=== PATIENT | female | born 1955 | race Caucasian/White ===

== ENCOUNTER 2017-06-09 11:35 | Day surgery (SDC) | END 2017-06-09 14:52 | disposition home or self-care (01) ==

== ENCOUNTER 2017-08-18 08:36 | Day surgery (SDC) | END 2017-08-18 12:40 | disposition home or self-care (01) ==

== ENCOUNTER 2018-06-01 15:43 | Emergency (ER) | payer OTHER ==
[~2018-06-01] VITALS: Ht 165.1 cm; Wt 55.0 kg
[2018-06-01 15:50] VITALS: BP 147/85; PULSE 102; RESP 20; Ht 165.1 cm; Wt 55.0 kg
[2018-06-01] MEDS ORDERED: NITR100C6 PO (21:45)
--- NOTE | 2018-06-02 02:45 | ERD ---
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 She states that she has been noticing blood when she pees. No prior similar symptoms. She denies any pain. She denies fevers or chills. She denies burning sensation. She denies nausea or vomiting. She has history of left breast lump and has being followed by specialist. She states that she had a PET scan done 2 weeks ago which was negative. She denies chest pain or shortness of breath. Denies abdominal pain, nausea, vomiting. ROS All systems reviewed and are negative except as per history of present illness. Medications Home Meds Active Scripts Nitrofurantoin Monohyd Macrocr (Macrobid) 100 Mg Capsr, 100 MG PO BID for UTI for 5 Days, #10 CAP Prov:DAKOTA KAISER DO 06/01/18 Allergies Allergies: Coded Allergies: Penicillins (Verified Allergy, Intermediate, 08/18/17) rash latex (Verified Allergy, Intermediate, 08/18/17) rashes PMhx/Soc Medical and Surgical Hx: pt denies Medical Hx, pt denies Surgical Hx History of Surgery: Yes (LEFT KNEE SX, LEFT BREAST LUMP REMOVAL) Anesthesia Reaction: No Hx Neurological Disorder: No Hx Respiratory Disorders: No Hx Cardiac Disorders: No Hx Psychiatric Problems: No Hx Miscellaneous Medical Probl: No Hx Alcohol Use: No Hx Substance Use: No Hx Tobacco Use: Yes Smoking Status: Current some day smoker Physical Exam Vitals Vital Signs Date Temp Pulse Resp B/P (MAP) Pulse Ox O2 O2 Flow FiO2 Time Delivery Rate 06/01/18 97.2 102 20 147/85 99 15:50 (105) Physical Exam Const: No acute distress Head: Atraumatic Eyes: Normal Conjunctiva ENT: Normal External Ears, Nose and Mouth. Neck: Full range of motion. No meningismus. Resp: Clear to auscultation bilaterally Cardio: Regular rate and rhythm, no murmurs Abd: Soft, non tender, non distended. Normal bowel sounds Skin: No petechiae or rashes Back: No midline or flank tenderness Ext: No cyanosis, or edema Neur: Awake and alert Psych: Normal Mood and Affect Result Diagram: 06/01/18194906/01/181949 Results 24 hrs Laboratory Tests Test 06/01/18 19:50 White Blood Count 10.6 10^3/ul Red Blood Count 3.92 10^6/ul Hemoglobin 12.6 g/dl Hematocrit 37.8 % Mean Corpuscular Volume 96.4 fl Mean Corpuscular Hemoglobin 32.1 pg Mean Corpuscular Hemoglobin Concent 33.3 g/dl Red Cell Distribution Width 12.3 % Platelet Count 267 10^3/UL Mean Platelet Volume 9.9 fl Immature Granulocytes % 0.200 % Neutrophils % 60.1 % Lymphocytes % 29.7 % Monocytes % 7.7 % Eosinophils % 1.6 % Basophils % 0.7 % Nucleated Red Blood Cells % 0.0 /100WBC Immature Granulocytes # 0.020 10^3/ul Neutrophils # 6.4 10^3/ul Lymphocytes # 3.2 10^3/ul Monocytes # 0.8 10^3/ul Eosinophils # 0.2 10^3/ul Basophils # 0.1 10^3/ul Nucleated Red Blood Cells # 0.0 10^3/ul Urine Color RED Urine Clarity CLOUDY Urine pH 5.0 Urine Specific [place] 1.021 Urine Ketones NEGATIVE mg/dL Urine Nitrite NEGATIVE mg/dL Urine Bilirubin NEGATIVE mg/dL Urine Urobilinogen NEGATIVE mg/dL Urine Leukocyte Esterase NEGATIVE [place]/ul Urine Microscopic RBC > 182 /HPF Urine Microscopic WBC 24 /HPF Urine Mucus FEW /HPF Urine Hemoglobin 3+ mg/dL Urine Glucose NEGATIVE mg/dL Urine Total Protein 2+ mg/dl Sodium Level 142 mmol/L Potassium Level 4.5 mmol/L Chloride Level 108 mmol/L Carbon Dioxide Level 27 mmol/L Anion Gap 7 Blood Urea Nitrogen 22 mg/dl Creatinine 0.48 mg/dl Est Glomerular Filtrat Rate mL/min > 60 mL/min Glucose Level 86 mg/dl Calcium Level 9.4 mg/dl Total Bilirubin 0.1 mg/dl Direct Bilirubin 0.00 mg/dl Indirect Bilirubin 0.1 mg/dl Aspartate Amino Transf (AST/SGOT) 28 IU/L Alanine Aminotransferase (ALT/SGPT) 44 IU/L Alkaline Phosphatase 115 IU/L Total Protein 7.5 g/dl Albumin 4.6 g/dl Globulin 2.90 g/dl Albumin/Globulin Ratio 1.58 Procedures/MDM Medical Decision Making: Differential diagnosis includes but not limited to urinary tract infection, bladder malignancy, kidney injury. Patient appeared well on examination. CBC showed no anemia, no elevated WBC to suggest infection CMP showed no electrolyte abnormalities, normal renal and liver function UA consistent with a urinary tract infection Pelvic ultrasound was unremarkable. Patient given prescription for Macrobid. She is advised follow-up with her primary care physician for possible referral to urology. Patient advised regarding the importance of ruling out bladder malignancy. Patient agrees with care plan. Patient advised to follow up with PCP in 1-2 days. Patient advised to return to ED for new or worsening symptoms. Patient stable on discharge from the ED. Disclaimer: Inadvertent spelling and grammatical errors are likely due to EHR/dictation software use and do not reflect on the overall quality of patient care. Also, please note that the electronic time recorded on this note does not necessarily reflect the actual time of the patient encounter. Departure Diagnosis: Primary Impression: UTI (urinary tract infection) Additional Impression: Hematuria Condition: Fair Patient Instructions: Understanding Urinary Tract Infections (UTIs), Hematuria Additional Instructions: Call your primary care doctor TOMORROW for an appointment during the next 1-2 d ays.See the doctor sooner or return here if your condition worsens before your appointment time. If symptoms persistent, may need referral to urology. DAKOTA KAISER DO Jun 02, 2018 02:45
== END 2018-06-01 22:00 | disposition home or self-care (01) ==
LOC: FTE 15:43
DX: N39.0 Urinary tract infection, site not specified (principal); R31.9 Hematuria, unspecified; F17.210 Nicotine dependence, cigarettes, uncomplicated; Z91.040 Latex allergy status
CPT/HCPCS: 76775; 80053; 81001; 85025; 87086; Z7502